=== PATIENT | female | born 1990 | race Caucasian/White ===

== ENCOUNTER 2017-12-05 17:04 | Inpatient (IN) | payer BC, OTHER ==
[2017-12-05] VITALS (19 sets, daily range): BP systolic 93–117; BP diastolic 47–69; PULSE 18–108; RESP 16–18; TEMP 97.9–100; O2SAT 94–100
[~2017-12-05] VITALS: Ht 162.6 cm; Wt 64.4 kg
[~2017-12-05 17:04] MED LIST: ALLE24TA PO; RHINSUS; TYLE500T PO; Z.0.BCPILL PO
[2017-12-05] MEDS ORDERED: ACETAMINOPHEN 325 MG TAB PO PRN (19:30)
[2017-12-05] MEDS: SODIUM CHLOR 0.9% 1000 ML INJ 1,000 ML IV SCH (19:58)
[2017-12-05] MEDS: PANTOPRAZOLE SOD 40 MG DELAYED RELEASE TAB PO SCH (19:58)
--- NOTE | 2017-12-05 20:10 | MB ---
cc: Johnny Marrero MD, Richard MD DATE: 12/05/2017 REASON FOR CONSULTATION: Anemia with a hemoglobin of 6.4, hematocrit of 18.9, white count 6500 and platelets are 242,000. PATIENT PROFILE: The patient is a 27-year-old white female. She is single. She has no children. She was born in [place]. She does not smoke. Alcohol consists of 1 or 2 glasses of wine with dinner once a week. 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 She enjoys singing, travel, cooking and her dog. HISTORY OF PRESENT ILLNESS: The patient is a 27-year-old female who was well until 2 weeks ago when she had a cold. The symptoms of the cold resolved after a few days. This past Saturday, which is 4 days ago, she had 2 glasses of wine, lobster and steak and developed nausea and vomiting and brought up red vomitus. The volume was not large. There were no coffee grounds and she did not have any melena. Immediately following this, she had profound weakness, lightheadedness, near syncope and tachycardia. Due to tachycardia and shortness of breath, she had a CT angiogram of the thorax and I am told that it was normal and there is no evidence of a pulmonary embolus. She continued to be tachycardic. She was seen by cardiology due to the sustained tachycardia and had laboratory tests which included a CBC and a CMP. On 12/05/2017, white count of 6500, hemoglobin 6.4, hematocrit 18.9, platelets 242,000. The differential was unremarkable. There were no early forms present. A CMP was done and is unremarkable except for a slightly elevated BUN and creatinine ratio of 26, with normal being 25. The BUN was 16 and creatinine 0.6. The patient denies melena, hematochezia, and epistaxis. She does menstruate but takes control pills and the blood loss is very mild. She indicates that she had a CBC and platelet count done on 10/10/2017 and, at that time, the hemoglobin was 12.4. Prior to this Saturday event when she developed nausea, vomiting and weakness, she was well. Relevant to the current history is an event which occurred in 05/2008. She became acutely ill. She was in [facility] and was found to have a peritonitis and underwent an abdominal exploration. She was felt to have had a perforation, possibly from the stomach, although at the time of surgery they were not able to identify the area where there might have been a perforation. In addition, an upper endoscopy was non-revealing, but the working diagnosis at that time was perforated viscus, probably stomach. She subsequently developed a splenic abscess, which was drained by radiology. The major health issue that she struggles with is rheumatoid arthritis. She sees Dr. Daniel Slade and takes Plaquenil and Xeljanz. PAST SURGICAL HISTORY: 1. Reconstruction of the jaw in 2004. 2. Probable bowel perforation in 2007 leading to peritonitis and splenic abscess requiring abdominal exploration and radiologic drainage of abscess. 3. Tonsillectomy and sinus surgery in 2008. PAST MEDICAL HISTORY: 1. Rheumatoid arthritis. 2. Seasonal allergies. CURRENT MEDICATIONS: 1. Ortho Tri Cyclen Lo. 2. Plaquenil 200 mg a day. 3. Xeljanz XR 11 mg a day. 4. Jimena 180 mg a day. 5. Colon Health, which is a probiotic. 6. Biotin. 7. Montelukast sodium 10 mg a day. 8. Fluticasone propionate 50 mcg. 9. Glucosamine with vitamin D. ALLERGIES: NO ALLERGIES TO MEDICINES EXCEPT FOR A SITE REACTION TO HUMIRA injection. FAMILY HISTORY: Mother and father are living and well. Father has a pacemaker. REVIEW OF SYSTEMS: No change in vision or hearing. She had palpitations and tachycardia associated with the recent events this past Saturday. She had exertional shortness of breath. Saturday she had an episode of nausea and vomiting as described above. No dysuria, frequency, hematuria. She still menstruates, but the volume of menstruation is small. MUSCULOSKELETAL: Joint pain related to rheumatoid arthritis. NEUROLOGIC: No focal weakness. No skin problems. No vascular or psychiatric problems. PHYSICAL EXAMINATION: GENERAL: Reveals a well-appearing female in no immediate distress. VITAL SIGNS: Blood pressure is 120/70, respiratory rate 18, pulse 100, temperature is 100. HEENT: Head is normocephalic. Sclerae and conjunctivae are normal. Oropharynx is unremarkable. NECK: There is no cervical, supraclavicular, axillary or inguinal adenopathy. HEART: Regular rhythm, rate 100. No murmur or gallop. LUNGS: Clear, without rales, wheezes, or rhonchi. ABDOMEN: Soft, no tenderness, no hepatosplenomegaly or masses. EXTREMITIES: No edema. MUSCULOSKELETAL: No bone pain. No obvious joint swelling. CENTRAL NERVOUS SYSTEM: No weakness. RECTAL: A rectal exam was done. There was dark brown stool bordering on black. The stool was markedly heme positive. ASSESSMENT AND PLAN: The patient is a 27-year-old female who was stable until this past Saturday when she had an episode of vomiting, which contained red material. She had a normal hemoglobin of 12.4 on 10/10 as per history and now presents with severe anemia with a hemoglobin of 6.4. The rectal exam shows a markedly heme positive stool bordering on black. I believe that she had an acute gastrointestinal bleed. What is of interest is she had a problem involving the gastrointestinal tract resulting in peritonitis dating back to 05/2008. RECOMMENDATIONS: 1. Would recommend transfusing to a comfortable level. 2. I have ordered a reticulocyte count, LDH, haptoglobin and iron studies. 3. She needs a gastrointestinal evaluation including upper endoscopy and, if necessary, pill endoscopy and colonoscopy. 4. The above was discussed with the patient, her mother and her father, who is a colorectal surgeon and close friend. She has seen Dr. Arias in the past. I tried to reach out by phone, but was unable to connect . I have ordered a CBC for tomorrow. The patient is scheduled for transfusion today. MD GIRMA Strauss/ , 07:27 PM , 08:08 PM REGULO
[2017-12-05 20:41] LABS: AUTOMATED NEUTROPHIL # 7.2 TH/MM3 (1.8-7.7); BASOPHIL % 0.2 % (0.0-2.0); EOSINOPHIL # 0.1 TH/MM3 (0-0.4); LYMPH % 17.8 % (9.0-44.0); LYMPHOCYTE # 1.7 TH/MM3 (1.0-4.8); MEAN CELL VOLUME 94.1 FL (80.0-100.0); MEAN CORPUSCULAR HEMOGLOBIN 31.4 PG (27.0-34.0); MEAN CORPUSCULAR HGB CONC 33.4 % (32.0-36.0); MEAN PLATELET VOLUME 8.7 FL (7.0-11.0); MONO % 6.9 % (0.0-8.0); MONOCYTE # 0.7 TH/MM3 (0-0.9); NEUT % 74.1 % (16.0-70.0); PLATELET COUNT 226 TH/MM3 (150-450); RED BLOOD COUNT 1.66 MIL/MM3 (4.00-5.30); RED CELL DISTRIBUTION WIDTH 12.8 % (11.6-17.2); RETIC # 80.8 MIL/L (20.0-150.0); RETIC % 4.9 % (0.4-3.0); WHITE BLOOD COUNT 9.8 TH/MM3 (4.0-11.0)
[2017-12-05 20:50] LABS: HEMATOCRIT 15.6 % (35.0-46.0); HEMOGLOBIN 5.2 GM/DL (11.6-15.3)
[2017-12-05 21:00] LABS: IRON (FE) 75 MCG/DL (50-170); TOTAL IRON BINDING CAPACITY 326 MCG/DL (250-450)
[2017-12-05 21:03] LABS: FERRITIN 11 NG/ML (8-252)
[2017-12-05] MEDS ORDERED: GLUCOSAMINE (21:41)
[2017-12-05] MEDS ORDERED: BIOT1CAP3 PO (21:41)
[2017-12-05] MEDS ORDERED: VIT D (21:41)
[2017-12-05] MEDS ORDERED: TOFA1TAB PO (21:41)
[2017-12-05] MEDS ORDERED: NORG1TAB28 PO (21:41)
[2017-12-05] MEDS ORDERED: colon health PO (21:41)
[2017-12-05] MEDS ORDERED: MONT10TA4 PO (21:41)
[2017-12-05] MEDS ORDERED: PLAQ200T PO (21:41)
[2017-12-05] MEDS ORDERED: FEXO15TA PO (21:41)
[2017-12-06] VITALS (11 sets, daily range): BP systolic 103–118; BP diastolic 66–80; PULSE 80–101; RESP 16–18; TEMP 98–99.6; O2SAT 97–100
[2017-12-06 01:40] LABS: HEMATOCRIT 25.6 % (35.0-46.0); HEMOGLOBIN 9.3 GM/DL (11.6-15.3)
[2017-12-06] MEDS: SODIUM CHLOR 0.9% 1000 ML INJ 1,000 ML IV SCH (01:58)
[2017-12-06] MEDS ORDERED: diphenhydrAMINE HCL 25 MG CAP PO PRN (02:00)
[2017-12-06] MEDS ORDERED: POVIDONE IODINE 5% (ANTISEPSIS KIT) 4 APPLICATIONS EACH NARE PRN (06:00)
[2017-12-06] MEDS ORDERED: LACTATED RINGER'S 1000 ML IV PRN (06:00)
[2017-12-06] MEDS ORDERED: SODIUM CHLORID 0.9% 500 ML IV PRN (06:00)
[2017-12-06] MEDS ORDERED: CHLORHEXIDINE GLUCONATE 2 % 1 PACK (2 CLOTHS) TOPICAL PRN (06:00)
[2017-12-06 06:12] LABS: AUTOMATED NEUTROPHIL # 5.3 TH/MM3 (1.8-7.7); BASOPHIL % 0.4 % (0.0-2.0); EOSINOPHIL # 0.1 TH/MM3 (0-0.4); EOSINOPHIL % 1.1 % (0.0-4.0); HEMATOCRIT 28.2 % (35.0-46.0); HEMOGLOBIN 9.7 GM/DL (11.6-15.3); LYMPH % 24.2 % (9.0-44.0); LYMPHOCYTE # 1.9 TH/MM3 (1.0-4.8); MEAN CELL VOLUME 87.7 FL (80.0-100.0); MEAN CORPUSCULAR HEMOGLOBIN 30.1 PG (27.0-34.0); MEAN CORPUSCULAR HGB CONC 34.3 % (32.0-36.0); MEAN PLATELET VOLUME 8.5 FL (7.0-11.0); MONO % 8.1 % (0.0-8.0); MONOCYTE # 0.6 TH/MM3 (0-0.9); NEUT % 66.2 % (16.0-70.0); PLATELET COUNT 146 TH/MM3 (150-450); RED BLOOD COUNT 3.21 MIL/MM3 (4.00-5.30); RED CELL DISTRIBUTION WIDTH 14.8 % (11.6-17.2)
[2017-12-06] MEDS ORDERED: LIDOCAINE HCL 2% 100 MG/5 ML SYRINGE ONE (07:27)
--- NOTE | 2017-12-06 08:45 | MB ---
cc: Jamel Mclaughlin MD DATE: 12/06/2017 DATE OF : 1990 REASON FOR GI CONSULT: Symptomatic anemia, drop in hemoglobin, hemoccult positive stools. HISTORY OF PRESENT ILLNESS: A pleasant 27-year-old female who presents with symptomatic anemia. This past Saturday the patient consumed some wine with her meal. She had nausea and vomiting of reddish material. It is uncertain whether this represented blood or wine that she had consumed. Following this episode she had significant lightheadedness, weakness with possible near-syncopal episodes and tachycardia. Her heart rate was noted to be elevated at that time. She apparently had a CT angiogram as well to rule out pulmonary embolism as she recently traveled by air and this study was essentially benign. According to her father, who is a physician, she previously had a hemoglobin of 12.0; it had dropped to 6.4, then 5.2. She was transfused several units of packed cells. Hemoglobin is currently 9.1. She is feeling better at this time. She denies any hematochezia or black stools. However, a digital rectal exam that was performed revealed heme-positive stools microscopically. Her history is also pertinent for a pneumoperitoneum and peritonitis back in 2007, although obvious site was never localized. She did have abdominal exploratory surgery at that time. In addition, she had upper endoscopy by Dr. Arias which was also unrevealing. She did have a left upper quadrant intraabdominal abscess that was also drained at that time. The patient has denied any NSAID use or heavy alcohol use. We are proceeding with upper endoscopy to rule out any significant upper gastrointestinal bleeding source, which could include vascular lesion such as a Dieulafoy's lesion. We discussed this today. I discussed this also with Dr. Looney, her father. PAST MEDICAL HISTORY: She had some reconstructive jaw surgery in 2004, bowel perforation in 2007, tonsillectomy, history of rheumatoid arthritis and seasonal allergies. MEDICATIONS: 1. Ortho Tri-Cyclen. 2. Plaquenil. 3. Xeljanz. 4. Jimena. 5. Biotin. 6. Fluticasone. 4. Glucosamine. ALLERGIES: NO MEDICINAL ALLERGIES. FAMILY HISTORY: There is no gastrointestinal history of significance with her mother and father. There is no family history of colon cancer or GI bleeding. REVIEW OF SYSTEMS: A 12-point review of systems has been stated in the HPI. She has not had excessive menstrual periods. She denies rectal bleeding. LABORATORY DATA: Liver enzymes are normal and hemoglobin was mentioned above. BUN and creatinine were normal. PHYSICAL EXAMINATION: GENERAL: Pleasant, well-developed female who is alert and oriented x3, in no acute distress. VITAL SIGNS: Blood pressure 120/60, pulse is in the 90s. She is currently afebrile. HEENT: Normocephalic. Sclerae are anicteric. Oral mucosa moist. NECK: Supple. No JVD, masses or nodes. CARDIAC: S1, S2, regular rhythm. CHEST: Clear to A and P. ABDOMEN: Soft, nontender. No masses or organomegaly. Surgical scar is well healed. Bowel sounds are present throughout all quadrants. EXTREMITIES: Without clubbing, cyanosis or edema. NEUROLOGIC: She is neurologically intact. RECTAL: Exam was not repeated. SKIN: Warm and dry. No unusual rashes. ASSESSMENT AND RECOMMENDATIONS: A 27-year-old female with presentation of severe symptomatic anemia, drop in hemoglobin. Stools are heme-positive. There is a question whether or not the patient did have hematemesis prior to this event. Therefore, we will proceed with upper endoscopy to rule out any significant gastrointestinal bleeding source. I have discussed this with the patient and her father who is a physician. Procedure, risks and benefits were discussed including risks of bleeding, sepsis, perforation, risk from anesthesia. Possible etiologies could include a vascular lesion such as a Dieulafoy's or angiodysplastic lesions. If upper endoscopy is unremarkable, strong consideration should be given towards a colonoscopy at some point, followed by a capsule endoscopy as well if no obvious source can be localized. Thank you kindly for this consultation. MD STEVE Quiroz/MIKAL , 07:54 AM , 08:44 AM
[2017-12-06] MEDS ORDERED: PNEUMOCOCCAL POLYVALENT INJ 25 MCG/0.5 ML SYR IM ONE (09:00)
[2017-12-06] MEDS ORDERED: INFLUENZA VIRUS VACCINE (QUADRIVALENT) 0.5 ML SYR IM ONE (09:00)
--- NOTE | 2017-12-06 09:03 | MR ---
cc: Jamel Mclaughlin MD DATE: 12/06/2017 DATE OF : 1990. INDICATIONS FOR PROCEDURE: Evaluation of symptomatic anemia, drop in hemoglobin, rule out upper gastrointestinal bleeding source. Please refer to my consultation. Photographs taken. Biopsies were taken. PREMEDICATIONS: Administered by Anesthesiology. Monitoring as well was accomplished to include pulse oximetry, EKG and blood pressure monitor. PROCEDURE NOTE: After informed consent was obtained, and the procedure, risks and benefits were explained, including risks of bleeding, sepsis, perforation, risks of anesthesia. The patient was placed in the left lateral recumbent position. The video endoscope was inserted into the esophagus under direct visualization. At the EG junction there was noted to be LA classification A esophagitis with a superficial erosion noted. The stomach was entered. There appeared to be a paraesophageal hiatal hernia. There were noted to be scattered erosions in the proximal stomach. The scope was advanced to the antrum. The antrum had some superficial erythema. Biopsies were taken here to rule H. pylori. The pylorus was patent. Duodenal bulb was unremarkable. The first, second and third portion of the duodenum and even the proximal jejunum were noted to be normal, without any evidence of bleeding. Clear bilious secretions were noted. The scope was pulled back into the stomach and retroflexed. The cardia and fundus were otherwise unremarkable. In the gastric body, we did locate two gastric ulcers in the mid to proximal gastric body. The most distal one measured about 5 mm with some raised mucosa. The second one measured approximately 8-9 mm. Both with clean bases. No visible vessels were seen. Multiple biopsies were taken at the periphery margin of the ulcerations for sampling. The scope was then gradually withdrawn and the patient tolerated the procedure well. No immediate complications noted. IMPRESSION: This examination revealed: 1. Grade A esophagitis at the gastroesophageal junction. 2. Scattered erosions in the proximal stomach. 3. Prior paraesophageal hiatal hernia. 4. Gastric ulcers x2 in the gastric body as outlined above. Multiple biopsies were taken of the ulcers and of the antrum as well. PLAN: We will initiate Carafate therapy with PPI. Continue medical therapy. Followup clinically as an outpatient to monitor her status. These ulcerations noted in the gastric body had clean bases and at this point did not require endoscopic hemostatic treatment. I have discussed the case with her father, Dr. Looney. Hopefully, the patient can be discharged with outpatient management. We will follow up the biopsies as well. MD STEVE Quiroz/MIKAL , 08:46 AM , 09:02 AM
[2017-12-06] MEDS ORDERED: SODIUM CHLORIDE FLUSH PRN IV FLUSH (10:30)
[2017-12-06] MEDS: SUCRALFATE 1 GM TAB PO SCH ×3 (11:12→17:05)
[2017-12-06] MEDS ORDERED: PROPOFOL 200 MG/20 ML AMP IV ONE (12:00)
[2017-12-06] MEDS: PANTOPRAZOLE SOD 40 MG DELAYED RELEASE TAB PO SCH (17:05)
[2017-12-06 17:06] LABS: HEMATOCRIT 28.7 % (35.0-46.0); HEMOGLOBIN 10.1 GM/DL (11.6-15.3); MEAN CELL VOLUME 88.8 FL (80.0-100.0); MEAN CORPUSCULAR HEMOGLOBIN 31.1 PG (27.0-34.0); MEAN PLATELET VOLUME 8.1 FL (7.0-11.0); PLATELET COUNT 174 TH/MM3 (150-450); RED BLOOD COUNT 3.24 MIL/MM3 (4.00-5.30); RED CELL DISTRIBUTION WIDTH 15.1 % (11.6-17.2)
[2017-12-06] MEDS ORDERED: CARA1TAB6 PO (18:08)
[2017-12-06] MEDS ORDERED: PANTOPRAZOLE SODIUM 40 MG VIAL IV PUSH SCH (20:00)
[2017-12-06] MEDS ORDERED: SODIUM CHLORIDE FLUSH BID IV FLUSH SCH (21:00)
== END 2017-12-06 19:45 | disposition home or self-care (01) | DRG 811 ==
LOC: HCIN 17:04
PROVIDERS: ADMIT Colon & Rectal Surgery; ATTEND Colon & Rectal Surgery
PROC: 0DB68ZX Excision of Stomach, Via Natural or Artificial Opening Endoscopic, Diagnostic (ICD-10-PCS; principal; 2017-12-06 08:00)
DX: D64.9 Anemia, unspecified (principal); K25.4 Chronic or unspecified gastric ulcer with hemorrhage; K20.9 Esophagitis, unspecified; K44.9 Diaphragmatic hernia without obstruction or gangrene; K29.50 Unspecified chronic gastritis without bleeding; M06.9 Rheumatoid arthritis, unspecified
CPT/HCPCS: 36430; 76937; 82728; 83010; 83540; 83550; 83615; 85014; 85018; 85025; 85027; 85044; 85610; 85652; 85730; 86850; 86900; 86901; 86920; 88305; 88312; J7030; P9016